=== PATIENT | female | born 1980 ===

== ENCOUNTER → 2020-12-30 | Outpatient (CLI) | payer BC ==
--- NOTE | 2020-12-30 12:14 | KCIC ---
Examination: MRI of the right ankle without contrast HISTORY: History of Achilles pain, swelling COMPARISON: None TECHNIQUE: Multiplanar, multisequence MR imaging of the right ankle performed without contrast FINDINGS: The attachment of the Achilles tendon to the calcaneus grossly appears intact. There is mild thickene d appearance of the distal portion of the Achilles tendon just proximal to its attachment of the calc aneus likely mild tendinopathy. The attachment of the plantar fascia to the calcaneus grossly appears intact. The visualized anterior extensor compartment tendons, flexor tendons, peroneus longus tendon grossly appears unremarkable. Fat is present within the sinus tarsi. The visualized anterior, posterior tibiofibular, talofibular ligaments appear intact. Small amount of fluid identified extending posteriorly from the posterior subtalar joint. The deltoid ligament appears intact. The calcaneofibular ligament appears intact. IMPRESSION: 1. Mild tendinopathy Achilles tendon. 2. Small amount of fluid identified posterior to the subtalar joint. Electronically signed by: Christiano Tilley MD (12/30/2020 12:11 PM) [id number]
== END ==
LOC: KCIC MRI 10:42
DX: M76.61 Achilles tendinitis, right leg (principal); M25.471 Effusion, right ankle
CPT/HCPCS: 73721